=== PATIENT | female | born 1960 | race Caucasian/White ===

== ENCOUNTER 2022-05-09 16:44 | Emergency (ER) | payer BC ==
[~2022-05-09] VITALS: Ht 167.6 cm; Wt 81.0 kg
[2022-05-09 17:35] VITALS: BP 135/78
[2022-05-09] MEDS ORDERED: GUAI120L55 PO (18:50)
--- NOTE | 2022-05-09 19:27 | NUR ---
PT WAS SEEN AND TREATED AND DISCHARGED BY PA / PRIOR TO NURSE ASSESSMENT .
== END 2022-05-09 19:30 | disposition home or self-care (01) ==
LOC: ER 16:45
DX: B34.9 Viral infection, unspecified (principal); Z20.822 Contact with and (suspected) exposure to COVID-19; J10.1 Influenza due to other identified influenza virus with other respiratory manifestations; R05.9 Cough, unspecified; R50.9 Fever, unspecified; R53.1 Weakness; M79.18 Myalgia, other site; R53.83 Other fatigue; Z79.899 Other long term (current) drug therapy
CPT/HCPCS: 71045; 87502; 87503; 87635; 99284; C9803